=== PATIENT | female | born 1960 | race Caucasian/White ===

== ENCOUNTER 2017-06-19 11:05 | Emergency (ER) | payer BC, OTHER ==
[2017-06-19] MEDS ORDERED: KETOROLAC TROMETHAMINE INJ/PF 30 MG/1 ML SDV IV ONE (11:57)
[2017-06-19] MEDS ORDERED: ONDANSETRON HCL INJ/PF 4 MG/2 ML SDV IV ONE ×2 (11:57→14:00)
[2017-06-19] MEDS ORDERED: NORMAL SALINE 1000 ML 1,000 ML IV ONE ×2 (11:57→13:38)
[2017-06-19] MEDS ORDERED: MORPHINE SULFATE 10 MG/ML INJ IV ONE ×2 (11:57→14:00)
--- NOTE | 2017-06-19 11:57 | ER Document Report ---
ED GI/ - General Mode of Arrival: Ambulatory Information source: Patient TRAVEL OUTSIDE OF THE [place] IN LAST 30 DAYS: No <CARTER WANG - Last Filed: 06/19/17 12:47> <LAKSHIM HERNANDEZ - Last Filed: 06/19/17 15:41> - General Chief Complaint: Abdominal Pain Stated Complaint: ABDOMINAL PAIN Time Seen by Provider: 06/19/17 11:49 Notes: Patient is a 57-year-old female who presents to the emergency department today with complaints of left-sided flank pain radiating into her left groin. Patient states that her pain began abruptly, starting at 0800 this morning. Patient states she has had kidney stones once in the past. Patient states when she had a kidney stone in the past the pain was not as bad as it is today. Patient has had associated nausea and vomiting. Patient denies fevers. (CARTER WANG) - Related Data Allergies/Adverse Reactions: Penicillins Adverse Reaction (Intermediate, Verified 06/19/17 11:21) Pruritis Sulfa (Sulfonamide Antibiotics) Adverse Reaction (Intermediate, Verified 11:21) Pruritis Home Medications: Current Home Medications Celecoxib [Celebrex 100 mg Capsule] 100 mg PO DAILY 06/19/17 [History] Liraglutide [Saxenda] 2.4 units SQ DAILY 06/19/17 [History] Past Medical History - General Information source: Patient - Social History Smoking Status: Current Every Day Smoker Cigarette use (# per day): Yes Frequency of alcohol use: None Drug Abuse: None Lives with: Family Family History: Reviewed & Not Pertinent Patient has suicidal ideation: No Patient has homicidal ideation: No Musculoskeltal Medical History: Reports Hx Arthritis Past Surgical History: Reports: Other - Ventral hernia repair with small bowel resection - Immunizations Hx Diphtheria, Pertussis, Tetanus Vaccination: Yes <CARTER WANG - Last Filed: 06/19/17 12:47> Review of Systems - Review of Systems Constitutional: denies: Fever EENT: No symptoms reported Cardiovascular: No symptoms reported Respiratory: No symptoms reported Gastrointestinal: See HPI, Abdominal pain, Nausea, Vomiting Genitourinary: See HPI, Flank pain Female Genitourinary: No symptoms reported Musculoskeletal: No symptoms reported Skin: No symptoms reported Hematologic/Lymphatic: No symptoms reported Neurological/Psychological: No symptoms reported -: Yes All other systems reviewed and negative <CARTER WANG - Last Filed: 06/19/17 12:47> Physical Exam <KATHLEENROSANNACARTER - Last Filed: 06/19/17 12:47> <LAKSHMI HERNANDEZ - Last Filed: 06/19/17 15:41> - Vital signs Vitals: Temp Pulse Resp BP Pulse Ox 97.6 F 57 L 18 146/89 H 100 06/19/17 11:21 06/19/17 11:21 06/19/17 11:21 06/19/17 11:21 06/19/17 11:21 - Notes Notes: Physical Exam: General: Alert, appears uncomfortable secondary to pain. HEENT: Normocephalic. Atraumatic. PERRL. Extraocular movements intact. Oropharynx clear. Neck: Supple. Non-tender. Respiratory: No respiratory distress. Clear and equal breath sounds bilaterally. Cardiovascular: Regular rate and rhythm. Abdominal: Left lower quadrant tenderness with palpation. No distension. Normal Bowel Sounds. Back: Left flank pain tenderness with percussion. No deformity or step off. Extremities: Moves all four extremities. Upper extremities: Normal inspection. Normal ROM. Lower extremities: Normal inspection. No edema. Normal ROM. Neurological: Normal cognition. AAOx4. Normal speech. Psychological: Anxious Skin: Warm. Diaphoretic. Normal color. (CARTER WANG) Course - Laboratory Result Diagrams: 06/19/17 12:15 06/19/17 12:15 <CARTER WANG - Last Filed: 06/19/17 12:47> - Laboratory Result Diagrams: 06/19/17 12:15 06/19/17 12:15 <LAKSHMI HERNANDEZ - Last Filed: 06/19/17 15:41> - Vital Signs Vital signs: Temp Pulse Resp BP Pulse Ox 97.6 F 57 L 18 146/89 H 100 06/19/17 11:21 06/19/17 11:21 06/19/17 11:21 06/19/17 11:21 06/19/17 11:21 - Laboratory Laboratory results interpreted by me: 06/19/17 06/19/17 12:15 15:06 Sodium 146.6 H Chloride 110 H BUN 24 H Est GFR (Non-Af Amer) 55 L Urine Protein 30 H Urine Blood LARGE H Discharge <CARTER WANG - Last Filed: 06/19/17 12:47> <LAKSHMI HERNANDEZ - Last Filed: 06/19/17 15:41> - Discharge Clinical Impression: Calculus of proximal left ureter, Renal colic on left side Condition: Stable Disposition: HOME, SELF-CARE Additional Instructions: Kidney Stone: You are passing or have passed a kidney stone. These stones are usually due to increased calcium or uric acid concentrations in your urine. Stones within the kidney itself are not painful. The pain occurs as the stone leaves the kidney to pass down the long tube, called the ureter, leading to the bladder. If the stone is small, it will usually pass by itself. Most patients can pass the stone at home. You will usually receive medications for pain, nausea or vomiting, and sometimes a medication to assist in passing the kidney stone. However, if the pain is very severe or if vomiting prevents you from taking oral pain medications, you may need to return for further treatment. Drink three or four quarts of fluids per day. You will be given pain medication (if needed) and urine strainers. Strain all your urine to see if the stone passes. If your doctor has asked you to bring the stone in for analysis, return with the stone once it has passed. Return if pain or vomiting become severe, if you develop a high fever, if you are unable to pass your urine, or if other unusual symptoms occur. TAKE THE PAIN MEDICATION NEEDED. DRINK PLENTY OF FLUIDS. REST. CALL [facility] FOR AN APPOINTMENT THIS WEEK. RETURN TO THE EMERGENCY ROOM IF ANY NEW OR WORSENING SYMPTOMS. Prescriptions: Ondansetron [Zofran Odt 4 mg Tablet] 1 - 2 tab PO Q4H #10 tab.rapdis Oxycodone HCl/Acetaminophen [Percocet 5-325 mg Tablet] 1 - 2 tab PO ASDIR PRN # 20 tablet PRN Reason: Forms: Return to Work Referrals: NISREEN YOUNG NP [Primary Care Provider] - Follow up as needed [facility] [Provider Group] - Follow up in 3-5 days Scribe Attestation: 06/19/17 15:41 I personally performed the services described in the documentation, reviewed and edited the documentation which was dictated to the scribe in my presence, and it accurately records my words and actions. (LAKSHMI HERNANDEZ) Scribe Documentation - Scribe Written by Scribtommy:: Autumn Michael, 06/19/2017 1215 acting as scribe for :: Verena <CARTER WANG - Last Filed: 06/19/17 12:47>
[2017-06-19 12:32] LABS: ABSOLUTE LYMPHOCYTES (AUTO) 1.2 10^3/uL (0.5-4.7); ABSOLUTE MONOCYTES (AUTO) 0.5 10^3/uL (0.1-1.4); ABSOLUTE NEUT (AUTO) 6.3 10^3/uL (1.7-8.2); BASOPHILS % (AUTO) 0.4 % (0-2); EOSINOPHILS % (AUTO) 0.2 % (0-6); HEMATOCRIT 42.2 % (36.0-47.0); HEMOGLOBIN 14.4 g/dL (12.0-15.5); LYMPHOCYTES % (AUTO) 15.3 % (13-45); MEAN CORPUSCULAR HEMOGLOBIN 30.1 pg (27.0-33.4); MEAN CORPUSCULAR VOLUME 88 fl (80-97); MONOCYTES % (AUTO) 6.1 % (3-13); RED BLOOD COUNT 4.78 10^6/uL (3.72-5.28); RED CELL DISTRIBUTION WIDTH 13.4 % (11.5-14.0); WHITE BLOOD COUNT 8.1 10^3/uL (4.0-10.5)
[2017-06-19 12:47] LABS: ALANINE AMINOTRANSFERASE 31 U/L (9-52); ALBUMIN 4.5 g/dL (3.5-5.0); ALKALINE PHOSPHATASE 63 U/L (38-126); ANION GAP 14 (5-19); ASPARTATE AMINO TRANSFERASE 24 U/L (14-36); BILIRUBIN,DIRECT 0.3 mg/dL (0.0-0.4); BILIRUBIN,TOTAL 0.4 mg/dL (0.2-1.3); BLOOD UREA NITROGEN 24 mg/dL (7-20); CALCIUM 9.5 mg/dL (8.4-10.2); CARBON DIOXIDE 23 mmol/L (22-30); CHLORIDE 110 mmol/L (98-107); CREATININE RESULT 1.03 mg/dL (0.52-1.25); GLUCOSE 94 mg/dL (75-110); LIPASE 133.5 U/L (23-300); POTASSIUM 4.2 mmol/L (3.6-5.0); SODIUM 146.6 mmol/L (137-145); TOTAL PROTEIN 7.2 g/dL (6.3-8.2)
--- NOTE | 2017-06-19 13:01 | RADIOLOGY REPORT (SQ) ---
EXAM DESCRIPTION: CT LTD RENAL STONE PROTOCOL ON COMPLETED DATE/TIME: 06/19/2017 12:37 pm REASON FOR STUDY: left flank and LLQ pain COMPARISON: None. TECHNIQUE: CT scan of the abdomen and pelvis performed without intravenous or oral contrast. Images reviewed with lung, soft tissue, and bone windows. Reconstructed coronal and sagittal MPR images revi ewed. All images stored on PACS. All CT scanners at this facility use dose modulation, iterative reconstruction, and/or weight based d osing when appropriate to reduce radiation dose to as low as reasonably achievable (ALARA). [facility]: Dose Right [facility]: CareDose [facility]: Dose Right [facility]: Teradose 4D [facility]: Yatra RADIATION DOSE: Up-to-date CT equipment and radiation dose reduction techniques were employed. CTDIv ol: 13.5 mGy. DLP: 788 mGy-cm.mGy. LIMITATIONS: None. FINDINGS: LOWER CHEST: No significant findings. No nodules or infiltrates. NON-CONTRASTED LIVER, SPLEEN, ADRENALS: Evaluation limited by lack of IV contrast. No identified sign ificant masses. PANCREAS: No masses. No peripancreatic inflammatory changes. GALLBLADDER: No identified stones by CT criteria. No inflammatory changes to suggest cholecystitis. RIGHT KIDNEY AND URETER: No suspicious masses. Assessment limited by lack of IV contrast. There are some small nonobstructing stones. No hydronephrosis or hydroureter. LEFT KIDNEY AND URETER: No suspicious masses. Assessment limited by lack of IV contrast. There are some small nonobstructing stones. There is a 7 mm calculus in the proximal ureter. There is mild h ydronephrosis. AORTA AND RETROPERITONEUM: No aneurysm. No retroperitoneal masses or adenopathy. BOWEL AND PERITONEAL CAVITY: Diverticula are scattered throughout the colon. There are no acute infl ammatory changes. APPENDIX: Normal. PELVIS, BLADDER, AND ABDOMINAL WALL:No abnormal masses. No free fluid. Bladder normal. There is a pa raumbilical ventral hernia about 2 cm in width that contains only fat. There is a 2nd small shallow ventral hernia seen on image 47 series 3 that contains only. BONES: No significant findings. OTHER: No other significant finding. IMPRESSION: 1. There are small intrarenal calculi bilaterally. 2. There is a 7 mm calculus in the proximal left ureter causing mild hydronephrosis. 3. Diverticulosis coli. 4. There are 2 ventral hernias containing only fat. COMMENT: Quality ID # [id number]: Final reports with documentation of one or more dose reduction techniques (e.g., Automated exposure control, adjustment of the mA and/or kV according to patient size, use of iterative reconstruction technique) TECHNICAL DOCUMENTATION: JOB ID: [id number] [employer]- All Rights Reserved
[2017-06-19 15:23] LABS: APPEARANCE,URINE SLIGHTLY-CLOUDY; BILIRUBIN,URINE NEGATIVE (NEGATIVE); GLUCOSE, URINE NEGATIVE (NEGATIVE); KETONES,URINE NEGATIVE (NEGATIVE); LEUKOCYTE ESTERASE,URINE NEGATIVE (NEGATIVE); NITRITE,URINE NEGATIVE (NEGATIVE); PROTEIN,URINE 30 mg/dL (NEGATIVE); URINE SPECIFIC GRAVITY 1.012; UROBILINOGEN,URINE NEGATIVE mg/dL (<2.0)
[2017-06-19 16:17] VITALS: BP 128/85
== END 2017-06-19 16:17 | disposition home or self-care (01) ==
LOC: ER 11:05
DX: N13.2 Hydronephrosis with renal and ureteral calculous obstruction (principal); R11.2 Nausea with vomiting, unspecified; F41.9 Anxiety disorder, unspecified; R61 Generalized hyperhidrosis; F17.210 Nicotine dependence, cigarettes, uncomplicated
CPT/HCPCS: 96376; 99284; 96361; 96374; 96375; 36415; 83690; 85025; 80053; 81001; 76380; J1885; J2270; J2405; J7030